=== PATIENT | female | born 1955 | race Caucasian/White ===

== ENCOUNTER → 2022-10-06 | Outpatient (CLI) | payer OTHER ==
[~2022-10-06] MED LIST: ASPIRIN 81M81 MG/TA2 PO; CYMBALTA 60MG60 MG PO; LUNESTA3 MG PO; MOBIC 7.5MG7.5 MG PO; NORCO 325 MG-7.1 TAB PO; NORVASC 10MG10 MG PO; TENORMIN 5050 MG/TAB PO
== END ==
LOC: MC.RAD 09:36
DX: C50.911 Malignant neoplasm of unspecified site of right female breast (principal)
CPT/HCPCS: A9520; C1769